=== PATIENT | female | born 1985 | race Hispanic/Latino ===

== ENCOUNTER 2021-04-28 14:41 | Emergency (ER) | payer BC, SELFPAY ==
[2021-04-28] VITALS (7 sets, daily range): BP systolic 110–152; BP diastolic 68–85; PULSE 71–84; RESP 12–15; TEMP 36.7; O2SAT 99–100; BMI 21.9
[2021-04-28 16:05] LABS: Add Manual Diff / Slide Review NO; Basophils Absolute Auto 0 /uL (0-100); Basophils Percent Auto 0.3 % (0-2); Eosinophils Absolute Auto 0 /uL (0-450); Eosinophils Percent Auto 0.1 % (2-4); Hematocrit 37.9 % (36-46); Hemoglobin 12.6 g/dL (12.0-16.0); Lymphocytes Absolute Auto 1300 /uL (1100-4500); Lymphocytes Percent Auto 9.6 % (25-40); Mean Corpuscular HGB Conc 33.1 % (30-36); Mean Corpuscular Hemoglobin 30.3 PG (26-34); Mean Corpuscular Volume 91.5 fL (80-100); Monocytes Absolute Auto 200 /uL (0-900); Monocytes Percent Auto 1.8 % (3-14); Neutrophils Absolute Auto 11900 /uL (1500-7000); Neutrophils Percent Auto 88.2 % (50-75); Platelet Count 296 X10^3/uL (150-400); Red Blood Cell Count 4.15 X10^6/uL (4.0-5.2); Red Cell Distribution Width 12.6 % (11.6-14.8); White Blood Cell Count 13.4 X10^3/uL (4.5-11.0)
[2021-04-28 16:31] LABS: Alanine Aminotransferase 14 IU/L (<35); Albumin Globulin Ratio 1.4 (1.0-2.8); Alkaline Phosphatase 60 U/L (38-126); Aspartate Aminotransferase 25 IU/L (14-36); BUN Creatinine Ratio 22.4 (6-22); Bilirubin Total 0.8 mg/dL (0.2-1.3); Blood Urea Nitrogen 13 mg/dL (7-17); Calcium 9.3 mg/dL (8.4-10.2); Carbon Dioxide 22 mmol/L (22-32); Chloride 106 mmol/L (98-107); Estimated Glomerular Filt Rate > 60.0 mL/min (>60); Globulin 3.6 g/dL (1.7-4.1); Glucose 98 mg/dL (70-100); HEMOLYSIS < 15 (0-50); Lipase 62 U/L (23-300); Sodium 139 mmol/L (137-145); Total Protein 8.6 g/dL (6.3-8.2)
[2021-04-28 16:38] LABS: Bacteria Urine Moderate (10-30); Culture Indicated Urine Cult Not Indicated; RBC Urine 1-5/HPF (0-5/HPF); Squamous Epithelial Cell Urine 10-30 /HPF (0-5/HPF); WBC Urine 5-10/HPF (0-5/HPF)
--- NOTE | 2021-04-28 17:22 | DI.US.S_ITS ---
PROCEDURE: US ABDOMEN LIMITED INDICATIONS: RUQ PAIN TECHNIQUE: Real-time scanning was performed of the abdominal and retroperitoneal organs, with image documentation. COMPARISON: None. FINDINGS: Liver: Liver is normal in size and homogeneous in echotexture. There is a 0.7 x 0.6 x 0.8 cm echogenic lesion within the right hepatic lobe. Gallbladder: Gallbladder is normal in sonographic appearance without gallstones, gallbladder wall thickening, pericholecystic fluid, or abnormal sonographic Lawrence's. Biliary ducts: Intrahepatic bile ducts are non-dilated. Extrahepatic bile duct caliber measures 4 mm. Normal is 6-7 mm or less in diameter, or 10 mm or less post-cholecystectomy. Pancreas: Pancreas not well visualized secondary to gas Miscellaneous: No free abdominal fluid. IMPRESSION: Abdomen without acute sonographic abnormalities to explain patient's right upper quadrant pain. A 0.8 cm echogenic lesion within the right hepatic lobe possibly representing a hepatic hemangioma. This lesion would also be too small for accurate characterization using either CT or MRI. It has a benign appearance. Consider follow-up ultrasound in 6-12 months to document stability. Dictated by: Felipe Sahu M.D. on 04/28/2021 at 17:37 Approved by: Felipe Sahu M.D. on 04/28/2021 at 17:40
--- NOTE | 2021-04-28 20:30 | ED.ABDPAIN ---
HPI - Abdominal Pain <Zia Dozier PA-C - Last Filed: 04/28/21 20:37> General Chief Complaint: Abdominal Pain Stated Complaint: Rt Sided Abd Pain Time Seen by Provider: 04/28/21 17:00 Source: patient Mode of arrival: Ambulatory History of Present Illness HPI narrative: 36-year-old female with no reported past medical history presents to the ED with 1 day of right-sided abdominal pain. Patient states her pain started after awakening this morning. Patient endorses that her pain has subsided by the time she got to the ED. Patient denies fever, chills, chest pain, shortness of breath, nausea, vomiting, diarrhea, flank pain, dysuria, urinary frequency, lightheadedness, dizziness, syncope. Patient denies prior abdominal surgeries. Patient denies history of kidney stones, gallstones. Related Data Allergies Allergy/AdvReac Type Severity Reaction Status Date / Time No Known Drug Allergies Allergy Verified 04/28/21 14:57 Review of Systems <Zia Dozier PA-C - Last Filed: 04/28/21 20:37> Review of Systems ROS Unobtainable: All systems reviewed & are unremarkable except as noted in HPI and below Constitutional Constitutional: Denies chills, Denies fatigue, Denies fever(s), Denies frequent falls, Denies lethargy and Denies weakness Eyes Eyes: Denies change in vision, Denies eye discharge, Denies irritation and Denies loss of vision ENT Ears, Nose, Mouth, and Throat: Denies change in voice, Denies dizziness, Denies neck pain, Denies sore throat and Denies throat swelling Cardiovascular Cardiovascular: Denies chest pain, Denies irregular heart rhythm, Denies lightheadedness, Denies palpitations, Denies dyspnea, Denies dyspnea on exertion and Denies orthopnea Respiratory Respiratory: Denies cough, Denies dyspnea, Denies dyspnea on exertion and Denies wheezing Gastrointestinal Gastrointestinal: Reports abdominal pain, Denies change in bowel habits, Denies diarrhea, Denies nausea and Denies vomiting Genitourinary Genitourinary: Denies hematuria, Denies flank pain, Denies urinary incontinence and Denies urinary urgency Musculoskeletal Musculoskeletal: Denies back pain, Denies muscle weakness, Denies neck pain, Denies numbness and Denies tingling Integumentary/Breasts Skin/Breast: Denies pruritus, Denies erythema, Denies rash and Denies wounds Neurologic Neurologic: Denies behavioral changes, Denies confusion, Denies dizziness, Denies frequent falls, Denies loss of vision, Denies numbness, Denies tingling and Denies weakness Psychiatric Psychiatric: Denies anxiety, Denies behavioral changes, Denies confusion, Denies depression, Denies homicidal ideation and Denies suicidal ideation Endocrine Endocrine: Denies fatigue, Denies flushing and Denies palpitations Hematologic/Lymphatic Hematologic/Lymphatic: Denies easy bruising Allergic/Immunologic Allergic/Immunologic: Denies urticaria, Denies throat swelling and Denies wheezing Patient History <Zia Dozier PA-C - Last Filed: 04/28/21 20:37> Social History Smoking Status: Never smoker Smoking Status: Never smoker Substance Use Type: does not use Exam <Zia Dozier PA-C - Last Filed: 04/28/21 20:37> Initial Vital Signs Initial Vital Signs: Vital Signs Temperature 98.1 F 04/28/21 14:52 Pulse Rate 71 04/28/21 14:52 Respiratory Rate 14 04/28/21 14:52 Blood Pressure 152/75 H 04/28/21 14:52 Pulse Oximetry 99 04/28/21 14:52 Const General: cooperative, healthy appearing and comfortable [facility] Head: normal to inspection Eyes General: appearance normal, both eyes and all related structures Neck Neck: normal visual inspection Resp Effort & Inspection: normal respiratory effort Auscultation: clear to auscultation bilaterally Cardio Rate: regular rate Rhythm: regular rhythm GI Other: Abdomen is soft, nondistended, tender to palpation in the right upper quadrant. No tenderness in the RLQ General: No CVA tenderness Skin General: no rashes or lesions noted Neuro General: patient alert, patient awake and patient oriented x3 Psych Appearance: grossly normal Mental Status: mental status grossly normal <Aisha Rodriges DO - Last Filed: 05/03/21 09:14> Initial Vital Signs Initial Vital Signs: Vital Signs Temperature 98.1 F 04/28/21 14:52 Pulse Rate 71 04/28/21 14:52 Respiratory Rate 14 04/28/21 14:52 Blood Pressure 152/75 H 04/28/21 14:52 Pulse Oximetry 99 04/28/21 14:52 Course <Zia Dozier PA-C - Last Filed: 04/28/21 20:37> Orders Ordered: ED Orders 04/28/21 14:57 Complete Blood Count AUTO DIFF Stat 04/28/21 16:22 Comprehensive Metabolic Panel Stat Lipase Stat 04/28/21 16:28 Urine Microscopic Stat 04/28/21 17:22 US abdomen limited Stat 04/28/21 17:55 EKG-12 Lead Stat Vital Signs Vital signs: Vital Signs - 8 hr 04/28/21 14:52 04/28/21 16:44 04/28/21 17:00 Temperature 98.1 F Pulse Rate 71 82 74 Respiratory Rate 14 15 12 Blood Pressure 152/75 H 140/85 115/68 Pulse Oximetry 99 99 99 04/28/21 17:30 04/28/21 18:00 04/28/21 18:30 Temperature Pulse Rate 79 83 82 Respiratory Rate 13 15 Blood Pressure 110/68 120/74 112/70 Pulse Oximetry 100 100 100 04/28/21 19:00 Temperature Pulse Rate 84 Respiratory Rate 12 Blood Pressure 118/70 Pulse Oximetry 100 <Aisha Rodriges DO - Last Filed: 05/03/21 09:14> Orders Ordered: ED Orders 04/28/21 14:57 Complete Blood Count AUTO DIFF Stat 04/28/21 16:22 Comprehensive Metabolic Panel Stat Lipase Stat 04/28/21 16:28 Urine Microscopic Stat 04/28/21 17:22 US abdomen limited Stat 04/28/21 17:55 EKG-12 Lead Stat Vital Signs Vital signs: Vital Signs - 8 hr 04/28/21 14:52 04/28/21 16:44 04/28/21 17:00 Temperature 98.1 F Pulse Rate 71 82 74 Respiratory Rate 14 15 12 Blood Pressure 152/75 H 140/85 115/68 Pulse Oximetry 99 99 99 04/28/21 17:30 04/28/21 18:00 04/28/21 18:30 Temperature Pulse Rate 79 83 82 Respiratory Rate 13 15 Blood Pressure 110/68 120/74 112/70 Pulse Oximetry 100 100 100 04/28/21 19:00 Temperature Pulse Rate 84 Respiratory Rate 12 Blood Pressure 118/70 Pulse Oximetry 100 MDM - Abdominal Pain <ADRI Christina Last Filed: 04/28/21 20:37> Medical Records Attestation: I reviewed the patient's medical records. Lab Data Attestation: I reviewed the patient's lab results. Lab results narrative: Labs within normal limits. UA positive for UTI. Result diagrams: 04/28/21 14:57 04/28/21 16:22 Labs: Lab Results 04/28/21 04/28/21 04/28/21 Range/Units 14:57 16:22 16:28 WBC 13.4 H (4.5-11.0) X10^3/uL RBC 4.15 (4.0-5.2) X10^6/uL Hgb 12.6 (12.0-16.0) g/dL Hct 37.9 (36-46) % MCV 91.5 (80-100) fL MCH 30.3 (26-34) PG MCHC 33.1 (30-36) % RDW 12.6 (11.6-14.8) % Plt Count 296 (150-400) X10^3/uL Neut % (Auto) 88.2 H (50-75) % Lymph % (Auto) 9.6 L (25-40) % [place] % (Auto) 1.8 L (3-14) % Eos % (Auto) 0.1 L (2-4) % Baso % (Auto) 0.3 (0-2) % Neut # (Auto) 33007 H (9571-9872) /uL Lymph # (Auto) 1300 (6941-8653) /uL [place] # (Auto) 200 (0-900) /uL Eos # (Auto) 0 (0-450) /uL Baso # (Auto) 0 (0-100) /uL Sodium 139 (137-145) mmol/L Potassium 4.0 (3.4-5.1) mmol/L Chloride 106 (98-107) mmol/L Carbon Dioxide 22 (22-32) mmol/L BUN 13 (7-17) mg/dL Creatinine 0.58 (0.52-1.04) mg/dL Estimated GFR > 60.0 (>60) mL/min BUN/Creatinine Ratio 22.4 H (6-22) Glucose 98 (70-100) mg/dL Calcium 9.3 (8.4-10.2) mg/dL Total Bilirubin 0.8 (0.2-1.3) mg/dL AST 25 (14-36) IU/L ALT 14 (<35) IU/L Alkaline Phosphatase 60 (38-126) U/L Total Protein 8.6 H (6.3-8.2) g/dL Albumin 5.0 (3.5-5.0) g/dL Globulin 3.6 (1.7-4.1) g/dL Albumin/Globulin Ratio 1.4 (1.0-2.8) Lipase 62 (23-300) U/L Urine RBC 1-5/hpf (0-5/HPF) Urine WBC 5-10/hpf H (0-5/HPF) Ur Squamous Epith Cells 10-30 /hpf H (0-5/HPF) Urine Bacteria Moderate (10-30) H (None) Ur Culture Indicated? Cult not indicated Point of care testing: Point of Care Testing Test Results Negative Urine Dip Bedside Urine Glucose Negative Bedside Urine Bilirubin - Negative Bedside Urine Ketone +/- 5 Urine Specific [place] 1.015 Bedside Urine Occult Blood +++ Bedside Urine pH 6.0 Bedside Urine Protein - Negative Bedside Urine Urobilinogen - Negative Bedside Urine Nitrite - Negative Bedside Urine Leukocytes - Negative Esterase Imaging Data US - abdomen: Radiologist's Impression: PROCEDURE:? US ABDOMEN LIMITED ? INDICATIONS:? RUQ PAIN ? TECHNIQUE:? Real-time scanning was performed of the abdominal and retroperitoneal organs, with image documentation.? ? COMPARISON:? None. ? FINDINGS:? ? Liver:? Liver is normal in size and homogeneous in echotexture.? There is a 0.7 x 0.6 x 0.8 cm echogenic lesion within the right hepatic lobe. ? Gallbladder:? Gallbladder is normal in sonographic appearance without gallstones, gallbladder wall thickening, pericholecystic fluid, or abnormal sonographic Lawrence's.? ? Biliary ducts:? Intrahepatic bile ducts are non-dilated.? Extrahepatic bile duct caliber measures 4 mm.? Normal is 6-7 mm or less in diameter, or 10 mm or less post-cholecystectomy.? ? Pancreas:? Pancreas not well visualized secondary to gas ? Miscellaneous:? No free abdominal fluid.? ? ? IMPRESSION:? ? Abdomen without acute sonographic abnormalities to explain patient's right upper quadrant pain. ? A 0.8 cm echogenic lesion within the right hepatic lobe possibly representing a hepatic hemangioma.? This lesion would also be too small for accurate characterization using either CT or MRI.? It has a benign appearance.? Consider follow-up ultrasound in 6-12 months to document stability. ? ? ? Dictated by: Felipe Sahu M.D. on 04/28/2021 at 17:37 ? ? Approved by: Felipe Sahu M.D. on 04/28/2021 at 17:40 ? MDM Narrative Medical decision making narrative: 36-year-old female with no reported past medical history presents to the ED with 1 day of right-sided abdominal pain. Concern for cholecystitis versus biliary colic versus UTI versus pancreatitis Patient's abdominal exam positive for Lawrence's but negative for right lower quadrant pain. Unlikely appendicitis. Will order labs, lipase, UA, abdominal ultrasound. UA positive for UTI. Ultrasound without acute findings. Will treat with antibiotics. ED return precautions discussed. Discharge patient. <Aisha Rodriges, - Last Filed: 05/03/21 09:14> Lab Data Labs: Lab Results 04/28/21 04/28/21 04/28/21 Range/Units 14:57 16:22 16:28 WBC 13.4 H (4.5-11.0) X10^3/uL RBC 4.15 (4.0-5.2) X10^6/uL Hgb 12.6 (12.0-16.0) g/dL Hct 37.9 (36-46) % MCV 91.5 (80-100) fL MCH 30.3 (26-34) PG MCHC 33.1 (30-36) % RDW 12.6 (11.6-14.8) % Plt Count 296 (150-400) X10^3/uL Neut % (Auto) 88.2 H (50-75) % Lymph % (Auto) 9.6 L (25-40) % [place] % (Auto) 1.8 L (3-14) % Eos % (Auto) 0.1 L (2-4) % Baso % (Auto) 0.3 (0-2) % Neut # (Auto) 51877 H (8870-1254) /uL Lymph # (Auto) 1300 (2585-0473) /uL [place] # (Auto) 200 (0-900) /uL Eos # (Auto) 0 (0-450) /uL Baso # (Auto) 0 (0-100) /uL Sodium 139 (137-145) mmol/L Potassium 4.0 (3.4-5.1) mmol/L Chloride 106 (98-107) mmol/L Carbon Dioxide 22 (22-32) mmol/L BUN 13 (7-17) mg/dL Creatinine 0.58 (0.52-1.04) mg/dL Estimated GFR > 60.0 (>60) mL/min BUN/Creatinine Ratio 22.4 H (6-22) Glucose 98 (70-100) mg/dL Calcium 9.3 (8.4-10.2) mg/dL Total Bilirubin 0.8 (0.2-1.3) mg/dL AST 25 (14-36) IU/L ALT 14 (<35) IU/L Alkaline Phosphatase 60 (38-126) U/L Total Protein 8.6 H (6.3-8.2) g/dL Albumin 5.0 (3.5-5.0) g/dL Globulin 3.6 (1.7-4.1) g/dL Albumin/Globulin Ratio 1.4 (1.0-2.8) Lipase 62 (23-300) U/L Urine RBC 1-5/hpf (0-5/HPF) Urine WBC 5-10/hpf H (0-5/HPF) Ur Squamous Epith Cells 10-30 /hpf H (0-5/HPF) Urine Bacteria Moderate (10-30) H (None) Ur Culture Indicated? Cult not indicated Point of care testing: Point of Care Testing Test Results Negative Urine Dip Bedside Urine Glucose Negative Bedside Urine Bilirubin - Negative Bedside Urine Ketone +/- 5 Urine Specific [place] 1.015 Bedside Urine Occult Blood +++ Bedside Urine pH 6.0 Bedside Urine Protein - Negative Bedside Urine Urobilinogen - Negative Bedside Urine Nitrite - Negative Bedside Urine Leukocytes - Negative Esterase Discharge Plan Departure Patient Disposition: Home Clinical Impression: UTI (urinary tract infection) Instructions: DI for Urinary Tract Infection (UTI) Activity Restrictions/Additional Instructions: Evaluated in the ED today for right-sided abdominal pain. Your labs, CT abdomen pelvis did not show any acute findings. There was a small lesion in the liver that could possibly be a hemangioma that your PCP can follow with repeat ultrasounds over the next few months. Your urine showed a urinary tract infection, for which you are being prescribed antibiotics. Please complete the full course of antibiotics. Return to the ED if you experience pain with urination, frequent urination, flank pain, fever, chills, nausea, vomiting. <Aisha Rodriges, - Last Filed: 05/03/21 09:14> Cosign ED Attending [place] Attestation: I was immediately available in the department for consultation. Documentation has been reviewed.
== END 2021-04-28 19:31 | disposition home or self-care (01) ==
PROVIDERS: Emergency Medicine; Emergency Provider Student in an Organized Health Care Education/Training Program
DX: N39.0 Urinary tract infection, site not specified (principal)
CPT/HCPCS: 36415; 76705; 80053; 81003; 81015; 81025; 83690; 85025; 93005; 99284